=== PATIENT | female | born 1990 | race Caucasian/White ===

== ENCOUNTER 2017-10-06 22:36 | Emergency (ER) | payer SELFPAY ==
[2017-10-07] MEDS ORDERED: NA CHLORIDE 0.9% 1,000 ML ONE (00:15)
[2017-10-07] MEDS ORDERED: ONDANSETRON 4 MG/2 ML VIAL ONE (00:15)
[2017-10-07 00:21] LABS: Absolute Lymphocytes (CBC) 3.7 K/uL (0.7-4.9); Absolute Monocytes 0.6 K/uL (0.1-1.3); Absolute Neutrophil 6.3 K/uL (1.8-8.0); Basophils % 0.7 % (0-1.3); Eosinophils % 2.4 % (0-4.4); Hematocrit 44.8 % (36.0-45.0); Lymphocytes % 34.1 % (15.3-44.8); MCV 93.2 fL (80-100); MPV 7.6 fL (7.6-11.3); Monocytes % 5.6 % (3.3-12.3)
[2017-10-07 00:32] LABS: Potassium 3.4 mEq/L (3.6-5.0)
[2017-10-07 00:38] LABS: Albumin 5.1 g/dL (3.2-5.5); Bilirubin Direct 0.1 mg/dL (0-0.2); Bilirubin Total 0.3 mg/dL (0.3-1.2); Protein, Total 8.3 g/dL (6.0-8.3)
[2017-10-07 01:54] LABS: Urine Bacteria LOADED /HPF (<20); Urine Culture Reflex Order REFLEXED; Urine RBC NONE SEEN /HPF (NONE SEEN)
[2017-10-07 01:57] LABS: Urine Blood NEGATIVE (NEG); Urine Glucose NEGATIVE (NEG); Urine Protein NEGATIVE (NEG); Urine Specific Gravity 1.025 (1.005-1.030)
--- NOTE | 2017-10-07 02:09 | ER ---
Nurse's Notes [facility] Name: Carlos Bravo Age: 27 yrs Sex: Female : 1990 Arrival Date: 10/06/2017 Time: 22:41 Bed 7 Private MD: Sadiq Soliman E Diagnosis: Urinary tract infection, site not specified;Noninfective gastroenteritis and colitis, unspecified Presentation: 10/06 23:30 Presenting complaint: Patient states: I'VE HAD A FEVER AND CHILLS WITH A LOT OF NAUSEA bp SINCE SATURDAY. Transition of care: patient was not received from another setting of care. Onset of symptoms was October 04, 2017. Initial Sepsis Screen: Does the patient meet any 2 criteria? No. Patient's initial sepsis screen is negative. Does the patient have a suspected source of infection? No. Patient's initial sepsis screen is negative. Care prior to arrival: None. 23:30 Method Of Arrival: Ambulatory bp 23:30 Acuity: MIHIR 3 bp Triage Assessment: 10/07 00:11 General: Appears in no apparent distress. uncomfortable, Behavior is calm, cooperative, bp appropriate for age. Pain: Complains of pain in abdomen. Pain:. EENT: No deficits noted. Neuro: Level of Consciousness is awake, alert, obeys commands, Oriented to person, place, time, situation, Appropriate for age. Cardiovascular: No deficits noted. Respiratory: Airway is patent Respiratory effort is even, unlabored, Respiratory pattern is regular, symmetrical. GI: Abd is soft X 4 quads Reports nausea. GI:. : No signs and/or symptoms were reported regarding the genitourinary system. Derm: No deficits noted. Musculoskeletal: No deficits noted. 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 - Social history:: Smoking status: Patient/guardian denies using tobacco. Screenin:24 Abuse screen: Denies threats or abuse. Nutritional screening: No deficits noted. jd3 Tuberculosis screening: No symptoms or risk factors identified. Fall Risk IV access (20 points). Mental Status- Oriented to own ability (0 pts). Total Vides Fall Scale indicates No Risk (0-24 pts). Assessment: 00:22 General: Appears uncomfortable, Behavior is calm, cooperative, appropriate for age. jd3 Pain: Complains of pain in right upper quadrant Quality of pain is described as aching, sharp. Neuro: Level of Consciousness is awake, alert, obeys commands, Oriented to person, place, time, situation. Cardiovascular: Heart tones S1 S2 present Capillary refill < 3 seconds Patient's skin is warm and dry. Respiratory: Airway is patent Respiratory effort is even, unlabored, Respiratory pattern is regular, symmetrical, Breath sounds are clear bilaterally. GI: Abdomen is flat, Bowel sounds present X 4 quads. Abd is soft Abdomen is tender to palpation in right upper quadrant Reports diarrhea, nausea, vomiting. : No signs and/or symptoms were reported regarding the genitourinary system. EENT: No signs and/or symptoms were reported regarding the EENT system. Derm: Skin is intact, Skin is dry, Skin is normal, Skin temperature is warm. Musculoskeletal: Circulation, motion, and sensation intact. Range of motion: intact in all extremities. 00:55 Reassessment: Patient appears in no apparent distress at this time. Patient and/or jd3 family updated on plan of care and expected duration. Pain level reassessed. Patient is alert, oriented x 3, equal unlabored respirations, skin warm/dry/pink. 01:57 Reassessment: Patient appears in no apparent distress at this time. Patient and/or jd3 family updated on plan of care and expected duration. Pain level reassessed. Patient is alert, oriented x 3, equal unlabored respirations, skin warm/dry/pink. 02:18 Reassessment: Patient appears in no apparent distress at this time. Patient and/or jd3 family updated on plan of care and expected duration. Pain level reassessed. Patient is alert, oriented x 3, equal unlabored respirations, skin warm/dry/pink. pt reporting understanding of discharge instructions, even and steady gait upon discharge. Vital Signs: 10/06 23:28 BP 116 / 76; Pulse 105; Resp 16; Temp 98.4(O); Pulse Ox 100% on R/A; Weight 58.97 kg mt (R); Height 5 ft. 3 in. (160.02 cm) (R); 23:57 BP 112 / 76; Pulse 90; Resp 16; Pulse Ox 100% on R/A; mt 10/07 00:55 BP 118 / 73; Pulse 88; Resp 17 S; Pulse Ox 99% on R/A; jd3 01:56 BP 113 / 61; Pulse 79; Resp 18 S; Pulse Ox 100% on R/A; jd3 10/06 23:28 Body Mass Index 23.03 (58.97 kg, 160.02 cm) mt ED Course: 10/06 22:41 Patient arrived in ED. es 22:41 Sadiq Soliman MD is Private Physician. es 22:55 [facility]C [facility] kb 22:55 Gianluca Reyes MD is Attending Physician. kb 23:51 Diogenes Del Angel RN is Primary Nurse. jd3 10/07 00:11 Triage completed. bp 00:11 Inserted saline lock: 22 gauge in left antecubital area, using aseptic technique. Blood mt collected. 00:14 Arm band placed on. bp 00:24 Patient has correct armband on for positive identification. Bed in low position. Call jd3 light in reach. Side rails up X2. Adult w/ patient. 01:17 Radiology exam delayed due to test not completed at this time. nb1 01:41 Abdomen In Process Unspecified. EDMS 02:17 No provider procedures requiring assistance completed. IV discontinued, intact, jd3 bleeding controlled, No redness/swelling at site. Pressure dressing applied. Administered Medications: 00:22 Drug: NS 0.9% 1000 ml Route: IV; Rate: 1000 ml; Site: left antecubital; jd3 01:21 Follow up: Response: No adverse reaction; IV Status: Completed infusion; IV Intake: jd3 1000ml 00:22 Drug: Zofran 4 mg Route: IVP; Site: left antecubital; jd3 01:20 Follow up: Response: No adverse reaction; Nausea is decreased jd3 Intake: 01:21 IV: 1000ml; Total: 1000ml. jd3 Outcome: 02:09 Discharge ordered by . kb 02:17 Discharged to home ambulatory, with family. jd3 02:17 Condition: stable 02:17 Discharge instructions given to patient, family, Instructed on discharge instructions, follow up and referral plans. medication usage, Demonstrated understanding of instructions, follow-up care, medications, Prescriptions given X 3. 02:19 Patient left the ED. jd3 Addendum: 10/12/2017 10:33 Addendum: Culture Results: Positive urine culture. Bacteria is resistant to, has i w intermediate sensitivity, or is not tested against prescribed antibiotics. Report given to MANI for further evaluation and then to executive cyber leader for follow up with patient. Phone call Attempt #1 phone number disconnected. Signatures: Dispatcher [employer] EDMO Ethel Rob, RIVER RAT-C RIVER RAT-Ckb Heather Nieto Irene, RN RN Dorothy Alan mt, Jonathon, RN RN jd3 Chiara Bejarano1 Vladimir Hines RN RN bp
--- NOTE | 2017-10-07 02:09 | EDPHYS ---
Physician Documentation [facility] Name: Carlos Bravo Age: 27 yrs Sex: Female : 1990 Arrival Date: 10/06/2017 Time: 22:41 Bed 7 Private MD: Sadiq Soliman E ED Physician Gianluca Reyes HPI: 10/07 01:14 This 27 yrs old Female presents to ER via Ambulatory with complaints of kb Fever, Abdominal Pain. 01:14 The patient presents with abdominal pain in the right upper quadrant. Onset: The kb symptoms/episode began/occurred 3 day(s) ago. The symptoms do not radiate. Associated signs and symptoms: Pertinent positives: nausea. The symptoms are described as achy. Modifying factors: The symptoms are alleviated by nothing, the symptoms are aggravated by nothing. Severity of pain: At its worst the pain was moderate in the emergency department the pain is unchanged. The patient has not experienced similar symptoms in the past. The patient has not recently seen a physician. 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 - Social history:: Smoking status: Patient/guardian denies using tobacco. ROS: 01:14 Constitutional: Negative for fever, chills, and weight loss, Cardiovascular: Negative kb for chest pain, palpitations, and edema, Respiratory: Negative for shortness of breath, cough, wheezing, and pleuritic chest pain, Back: Negative for injury and pain, : Negative for injury, bleeding, discharge, and swelling, MS/Extremity: Negative for injury and deformity, Skin: Negative for injury, rash, and discoloration, Neuro: Negative for headache, weakness, numbness, tingling, and seizure. 01:14 Abdomen/GI: Positive for abdominal pain, nausea, Negative for vomiting, diarrhea, constipation, abdominal cramps, abdominal distension, anorexia. Exam: 01:13 Constitutional: This is a well developed, well nourished patient who is awake, alert, kb and in no acute distress. Head/Face: Normocephalic, atraumatic. Chest/axilla: Normal chest wall appearance and motion. Nontender with no deformity. No lesions are appreciated. Cardiovascular: Regular rate and rhythm with a normal S1 and S2. No gallops, murmurs, or rubs. Normal PMI, no JVD. No pulse deficits. Respiratory: Lungs have equal breath sounds bilaterally, clear to auscultation and percussion. No rales, rhonchi or wheezes noted. No increased work of breathing, no retractions or nasal flaring. Skin: Warm, dry with normal turgor. Normal color with no rashes, no lesions, and no evidence of cellulitis. MS/ Extremity: Pulses equal, no cyanosis. Neurovascular intact. Full, normal range of motion. Neuro: Awake and alert, GCS 15, oriented to person, place, time, and situation. Cranial nerves II-XII grossly intact. Motor strength 5/5 in all extremities. Sensory grossly intact. Cerebellar exam normal. Normal gait. 01:13 Abdomen/GI: Inspection: abdomen appears normal, Bowel sounds: normal, in all quadrants, Palpation: soft, in all quadrants, mild abdominal tenderness, in the right upper quadrant. Vital Signs: 10/06 23:28 BP 116 / 76; Pulse 105; Resp 16; Temp 98.4(O); Pulse Ox 100% on R/A; Weight 58.97 kg mt (R); Height 5 ft. 3 in. (160.02 cm) (R); 23:57 BP 112 / 76; Pulse 90; Resp 16; Pulse Ox 100% on R/A; mt 10/07 00:55 BP 118 / 73; Pulse 88; Resp 17 S; Pulse Ox 99% on R/A; jd3 01:56 BP 113 / 61; Pulse 79; Resp 18 S; Pulse Ox 100% on R/A; jd3 10/06 23:28 Body Mass Index 23.03 (58.97 kg, 160.02 cm) mt MDM: 10/06 23:23 Patient medically screened. kb 10/07 01:13 Data reviewed: vital signs, nurses notes. Data interpreted: Pulse oximetry: on room air kb is 99 %. Interpretation: normal. 02:08 Counseling: I had a detailed discussion with the patient and/or guardian regarding: the kb historical points, exam findings, and any diagnostic results supporting the discharge/admit diagnosis, lab results, radiology results, the need for outpatient follow up, a family practitioner, to return to the emergency department if symptoms worsen or persist or if there are any questions or concerns that arise at home. 10/06 23:43 Order name: Amylase, Serum; Complete Time: 00:47 kb 10/06 23:43 Order name: Basic Metabolic Panel; Complete Time: 00:47 kb 10/06 23:43 Order name: CBC with Diff; Complete Time: 00:24 kb 10/06 23:43 Order name: Hepatic Function; Complete Time: 00:47 kb 10/06 23:43 Order name: Lipase; Complete Time: 00:47 kb 10/06 23:43 Order name: Urine Microscopic Only; Complete Time: 01:55 kb 10/06 23:43 Order name: Urine Test (obtain specimen); Complete Time: 01:29 kb 10/06 23:43 Order name: IV Saline Lock; Complete Time: 00:13 kb 10/07 01:07 Order name: Abdomen [facility] 10/07 01:35 Order name: Urine Dipstick--Ancillary (enter results); Complete Time: 01:59 em1 10/07 01:55 Order name: Urine Culture [facility] 10/06 23:43 Order name: Labs collected and sent; Complete Time: 00:13 kb 10/06 23:43 Order name: Urine Dipstick-Ancillary (obtain specimen); Complete Time: 01:29 kb Administered Medications: 00:22 Drug: NS 0.9% 1000 ml Route: IV; Rate: 1000 ml; Site: left antecubital; jd3 01:21 Follow up: Response: No adverse reaction; IV Status: Completed infusion; IV Intake: jd3 1000ml 00:22 Drug: Zofran 4 mg Route: IVP; Site: left antecubital; jd3 01:20 Follow up: Response: No adverse reaction; Nausea is decreased jd3 Disposition: 03:15 Co-signature as Attending Physician, Gianluca Reyes MD I agree with the assessment and tw4 plan of care. Disposition: 10/07/17 02:09 Discharged to Home. Impression: Urinary tract infection, site not specified, Noninfective gastroenteritis and colitis, unspecified. - Condition is Stable. - Discharge Instructions: Viral Gastroenteritis, Urinary Tract Infection, [id number]. - Prescriptions for Bentyl 20 mg Oral Tablet - take 1 tablet by ORAL route every 6 hours As needed; 20 tablet. Zofran 4 mg Oral Tablet - take 1 tablet by ORAL route every 6 hours As needed; 20 tablet. Macrobid 100 mg Oral Capsule - take 1 capsule by ORAL route every 12 hours for 7 days; 14 capsule. - Medication Reconciliation Form, Thank You Letter, Antibiotic Education, Prescription Opioid Use form. - Follow up: Emergency Department; When: As needed; Reason: Worsening of condition. Follow up: Private Physician; When: 2 - 3 days; Reason: Recheck today's complaints, Continuance of care, Re-evaluation by your physician. Signatures: Dispatcher [employer] [facility] Ethel Rob, MATHEW-C DIRECTOR CARD-Diogenes Hinojosa, RN RN jd3 Vladimir Hines RN RN Gianluca Feldman MD MD tw4 Corrections: (The following items were deleted from the chart) 01:07 00:48 Abdomen Pelvis W Con+[id number].[email or web address].[email or web address] ordered. [facility] EDNM 01:14 01:14 Abdomen/GI: Positive for abdominal pain, Negative for nausea, vomiting, and kb diarrhea, constipation, abdominal cramps, abdominal distension, anorexia, kb
[2017-10-07 02:23] VITALS: TEMP 98.4
[2017-10-07 02:26] VITALS: BP 113/61; O2SAT 100
--- NOTE | 2017-10-07 07:40 | RAD REPORT ---
EXAM DESCRIPTION: CT - Abdomen Pelvis Wo Contrast - 10/07/2017 7:01 am CLINICAL HISTORY: Abdominal pain right upper quadrant pain with fever COMPARISON: 2009 with TECHNIQUE: Computed axial tomography of the abdomen and pelvis was obtained. IV and oral contrast we re not requested. A preliminary report was generated by [email or web address] and reviewed prior to this dictation All CT scans are performed using dose optimization technique as appropriate and may include automated exposure control or mA/KV adjustment according to patient size. FINDINGS: The evaluation of solid organs, vessels and bowel is limited secondary to the lack of con trast administration. The liver, spleen, pancreas, adrenals and kidneys appear grossly normal. The appendix is normal. There is no evidence of diverticulitis. An adnexal mass is not seen. The gallbladder is contracted. Mild nonspecific dilatation of the proxim al duodenum is present. IMPRESSION: Contracted gallbladder. This could be normal for the patient has recently eaten. Chronic cholecystitis can also have this appearance Mild dilatation of the proximal duodenum is nonspecific
== END 2017-10-07 02:19 | disposition home or self-care (01) ==
LOC: ER 22:36
DX: N39.0 Urinary tract infection, site not specified (principal); K52.9 Noninfective gastroenteritis and colitis, unspecified; F90.9 Attention-deficit hyperactivity disorder, unspecified type; Z91.013 Allergy to seafood
CPT/HCPCS: 36415; 74176; 80048; 80076; 81003; 81015; 82150; 83690; 85025; 87077; 87086; 87088; 87186; 96361; 96374; 99284; J2405; J7030